=== PATIENT | female | born 1990 | race Caucasian/White ===

== ENCOUNTER 2017-03-11 19:45 | Emergency (ER) | payer OTHER ==
[2017-03-11] MEDS ORDERED: ONDANSETRON 4 MG TAB.RAPDIS SL ONE (20:41)
[2017-03-11] MEDS ORDERED: OXYCODONE-ACETAMINOPHEN 5-325 MG TABLET PO ONE (20:41)
--- NOTE | 2017-03-11 20:42 | ER Document Report ---
ED Medical Screen (RME) - General Chief Complaint: Abdominal Pain Stated Complaint: ABDOMINAL PAIN Time Seen by Provider: 03/11/17 20:38 Mode of Arrival: Ambulatory Information source: Patient TRAVEL OUTSIDE OF THE [place] IN LAST 30 DAYS: No - HPI Patient complains to provider of: Pelvic pain Notes: 03/11/17 20:41 Patient is a 27-year-old female with a history of previous ovarian cyst, presenting to the emergency room today complaining of stabbing left pelvic pain that has been worsening over the past 2-3 days - Related Data Allergies/Adverse Reactions: lactose [Lactose] Allergy (Verified 03/11/17 20:31) Past Medical History - Social History Chew tobacco use (# tins/day): No Frequency of alcohol use: None Drug Abuse: None Pulmonary Medical History: Reports: Hx Pneumonia Renal/ Medical History: Denies: Hx Peritoneal Dialysis Malignancy Medical History: Reports: Hx Cervical Cancer - First and only dose of radiation was given 2 months ago Past Surgical History: Reports: Hx Orthopedic Surgery - shoulder - Immunizations Immunizations up to date: Yes Hx Diphtheria, Pertussis, Tetanus Vaccination: Yes Physical Exam - Vital signs Vitals: Temp Pulse Resp BP Pulse Ox 97.8 F 69 16 123/70 99 03/11/17 19:54 03/11/17 19:54 03/11/17 19:54 03/11/17 19:54 03/11/17 19:54 Course - Vital Signs Vital signs: Temp Pulse Resp BP Pulse Ox 97.8 F 69 16 123/70 99 03/11/17 19:54 03/11/17 19:54 03/11/17 19:54 03/11/17 19:54 03/11/17 19:54
[2017-03-11 21:10] LABS: ABSOLUTE EOSINOPHILS # (AUTO) 0.2 10^3/uL (0.0-0.6); ABSOLUTE LYMPHOCYTES (AUTO) 2.7 10^3/uL (0.5-4.7); ABSOLUTE MONOCYTES (AUTO) 0.8 10^3/uL (0.1-1.4); ABSOLUTE NEUT (AUTO) 3.6 10^3/uL (1.7-8.2); BASOPHILS % (AUTO) 0.7 % (0-2); EOSINOPHILS % (AUTO) 2.7 % (0-6); HEMATOCRIT 39.7 % (36.0-47.0); HEMOGLOBIN 13.8 g/dL (12.0-15.5); HGB HCT DIFFERENCE 1.7; LYMPHOCYTES % (AUTO) 37.2 % (13-45); MEAN CORPUSCULAR HEMOGLOBIN 30.6 pg (27.0-33.4); MEAN CORPUSCULAR HGB CONC 34.8 g/dL (32.0-36.0); MEAN CORPUSCULAR VOLUME 88 fl (80-97); MONOCYTES % (AUTO) 10.6 % (3-13); RED BLOOD COUNT 4.51 10^6/uL (3.72-5.28); RED CELL DISTRIBUTION WIDTH 12.5 % (11.5-14.0); SEGMENTED NEUTROPHILS % (AUTO) 48.8 % (42-78); WHITE BLOOD COUNT 7.4 10^3/uL (4.0-10.5)
[2017-03-11 21:20] LABS: ALANINE AMINOTRANSFERASE 18 U/L (9-52); ALBUMIN 4.3 g/dL (3.5-5.0); ALKALINE PHOSPHATASE 41 U/L (38-126); ANION GAP 7 (5-19); ASPARTATE AMINO TRANSFERASE 20 U/L (14-36); BILIRUBIN,DIRECT 0.3 mg/dL (0.0-0.4); BILIRUBIN,TOTAL 0.4 mg/dL (0.2-1.3); BLOOD UREA NITROGEN 15 mg/dL (7-20); CALCIUM 9.9 mg/dL (8.4-10.2); CARBON DIOXIDE 30 mmol/L (22-30); CHLORIDE 103 mmol/L (98-107); CREATININE RESULT 0.96 mg/dL (0.52-1.25); GLUCOSE 90 mg/dL (75-110); LIPASE 79.6 U/L (23-300); POTASSIUM 4.4 mmol/L (3.6-5.0); SODIUM 139.8 mmol/L (137-145)
--- NOTE | 2017-03-11 21:45 | ER Document Report ---
ED GI/ - General Chief Complaint: Abdominal Pain Stated Complaint: ABDOMINAL PAIN Time Seen by Provider: 03/11/17 20:38 Mode of Arrival: Ambulatory Notes: Patient is a 27-year-old female that comes emergency department for chief complaint of 2 days of worsening sharp intermittent left lower pelvic pain. Patient states it feels like it radiates around to her left lower back. She has had similar pain in the past, has been diagnosed with ovarian cysts in the past, these have resolved on her own and she has not needed surgical intervention. She takes oral contraceptive pills. She denies fever, trauma, vaginal discharge, dysuria, vaginal bleeding. LMP last month. She reports history of LEEP procedure for cervical dysplasia. TRAVEL OUTSIDE OF THE [place] IN LAST 30 DAYS: No - Related Data Allergies/Adverse Reactions: lactose [Lactose] Allergy (Verified 03/11/17 20:31) Past Medical History - General Information source: Patient - Social History Smoking Status: Never Smoker Chew tobacco use (# tins/day): No Frequency of alcohol use: None Drug Abuse: None Family History: Reviewed & Not Pertinent Patient has suicidal ideation: No Patient has homicidal ideation: No Pulmonary Medical History: Reports: Hx Pneumonia Renal/ Medical History: Denies: Hx Peritoneal Dialysis Malignancy Medical History: Reports: Hx Cervical Cancer - First and only dose of radiation was given 2 months ago Past Surgical History: Reports: Hx Orthopedic Surgery - shoulder - Immunizations Immunizations up to date: Yes Hx Diphtheria, Pertussis, Tetanus Vaccination: Yes Hx Pneumococcal Vaccination: 03/08/13 Review of Systems - Review of Systems Constitutional: No symptoms reported EENT: No symptoms reported Cardiovascular: No symptoms reported Respiratory: No symptoms reported Gastrointestinal: See HPI Genitourinary: See HPI Female Genitourinary: See HPI Musculoskeletal: No symptoms reported Skin: No symptoms reported Hematologic/Lymphatic: No symptoms reported Neurological/Psychological: No symptoms reported Physical Exam - Vital signs Vitals: Temp Pulse Resp BP Pulse Ox 97.8 F 69 16 123/70 99 03/11/17 19:54 03/11/17 19:54 03/11/17 19:54 03/11/17 19:54 03/11/17 19:54 Interpretation: Normal - General General appearance: Appears well, Alert In distress: None - HEENT Head: Normocephalic, Atraumatic Eyes: Normal Pupils: PERRL - Respiratory Respiratory status: No respiratory distress Chest status: Nontender Breath sounds: Normal Chest palpation: Normal - Cardiovascular Rhythm: Regular Heart sounds: Normal auscultation Murmur: No - Abdominal Inspection: Normal Distension: No distension Bowel sounds: Normal Tenderness: Tender - There is some tenderness in the left lower quadrant in the left pelvic area, otherwise abdomen is soft, benign, and has no guarding or rigidity Organomegaly: No organomegaly - Back Back: Normal, Nontender - Extremities General upper extremity: Normal inspection, Nontender, Normal color, Normal ROM , Normal temperature General lower extremity: Normal inspection, Nontender, Normal color, Normal ROM , Normal temperature, Normal weight bearing. No: Smith's sign - Neurological Neuro grossly intact: Yes Cognition: Normal Orientation: AAOx4 Luke Coma Scale Eye Opening: Spontaneous Luke Coma Scale Verbal: Oriented [place] Coma Scale Motor: Obeys Commands [place] Coma Scale Total: 15 Speech: Normal Motor strength normal: LUE, RUE, LLE, RLE Sensory: Normal - Psychological Associated symptoms: Normal affect, Normal mood - Skin Skin Temperature: Warm Skin Moisture: Dry Skin Color: Normal Course - Re-evaluation Re-evalutation: After medications from triage patient's symptoms resolved. She does have some left lower abdominal/pelvic tenderness but there is no severe tenderness, there is no guarding, there is no rigidity. Vital signs unremarkable. CBC, chemistry , urinalysis unremarkable. Ultrasound showing 2.5 cm left ovarian cyst with no evidence of torsion, also so some calcification in the endometrium, discussed these with patient. Patient states she is ready to leave. Provided with medication, discussed return precautions including symptoms of torsion in detail. Patient states understanding and agreement. - Vital Signs Vital signs: Temp Pulse Resp BP Pulse Ox 98.8 F 64 16 118/60 100 03/11/17 23:35 03/11/17 23:35 03/11/17 23:35 03/11/17 23:35 03/11/17 23:35 - Laboratory Result Diagrams: 03/11/17 20:47 03/11/17 20:47 Laboratory results interpreted by me: 03/11/17 20:06 Urine Ascorbic Acid 20 H Discharge - Discharge Clinical Impression: Pelvic pain Condition: Stable Disposition: HOME, SELF-CARE Additional Instructions: Your symptoms and examination do suggest that the ovarian cyst on the left side as the cause of your pain. You also incidentally have some calcification on your uterus. Recommendation is to take the pain medication given tonight along with about 600 mg of ibuprofen if needed for pain, this should resolve with time. Follow-up with [facility]. Return to the emergency department for any concerning or worsening symptoms including severe return pain, vomiting, fever, etc. Ovarian Cyst Your examination shows the presence of an ovarian cyst. This is a ball of fluid attached to the ovary. Ovarian cysts in women of child-bearing age are usually innocent. However, the cyst may cause pain when it grows or bursts. An innocent ovarian cyst will usually go away by itself. When the cyst becomes painful, you should rest. Pain medication may be required. Some women find a hot water bottle soothing. The pain usually resolves within one or two days. After menopause, an ovarian cyst may mean a tumor, and requires more aggressive evaluation -- usually surgery is recommended to remove or biopsy the cyst. A very large cyst requires evaluation at any age. Most cysts (even the innocent ones) require follow-up examination. Call the doctor or return at any time if the pain increases significantly, if you become faint, or if you experience vaginal bleeding. Referrals: DOLORES NUNES NP-C [Primary Care Provider] - Follow up as needed
[2017-03-11 22:39] LABS: APPEARANCE,URINE SLIGHTLY-CLOUDY; BILIRUBIN,URINE NEGATIVE (NEGATIVE); CALCIUM OXALATE CRYSTALS,URINE FEW /HPF; GLUCOSE, URINE NEGATIVE (NEGATIVE); KETONES,URINE NEGATIVE (NEGATIVE); LEUKOCYTE ESTERASE,URINE NEGATIVE (NEGATIVE); NITRITE,URINE NEGATIVE (NEGATIVE); PROTEIN,URINE NEGATIVE (NEGATIVE); URINE SPECIFIC GRAVITY 1.028; UROBILINOGEN,URINE NEGATIVE mg/dL (<2.0)
--- NOTE | 2017-03-11 22:51 | RADIOLOGY REPORT (SQ) ---
EXAM DESCRIPTION: U/S NON OB PEL TV W/DOPPLER COMPLETED DATE/TIME: 03/11/2017 10:18 pm REASON FOR STUDY: sharp left pelvic pain, hx ovarian cysts COMPARISON: None. TECHNIQUE: Dynamic and static grayscale images acquired of the pelvis via transvaginal approach and recorded on PACS. Additional selected color Doppler and spectral images recorded. LIMITATIONS: None. FINDINGS: UTERUS: Contour normal. No mass. ENDOMETRIAL STRIPE: 2 mm fundal calcification. CERVIX: No nabothian cysts. RIGHT OVARY: Ovary not visualized. RIGHT OVARY DOPPLER: Ovary not visualized. LEFT OVARY: 2.6 cm cyst. LEFT OVARY DOPPLER: Normal arterial vascular flow without evidence for torsion. FREE FLUID: Mild cul-de-sac free fluid. OTHER: No other significant finding. MEASUREMENTS: UTERUS: 9.0 x 5.4 x 3.8 cm ENDOMETRIAL STRIPE: 5 mm RIGHT OVARY: Not visualized LEFT OVARY: 3.4 x 2.8 x 3.2 cm IMPRESSION: Nonvisualized right ovary. 2 mm fundal endometrial calcification.Mild cul-de-sac free fl uid. TECHNICAL DOCUMENTATION: JOB ID: [id number] [employer]- All Rights Reserved
[2017-03-11] MEDS ORDERED: HYDROCODONE/ACETAMINOPHEN 5-325 MG 6 TAB/DSPK PO PRN (23:16)
[2017-03-11 23:36] VITALS: BP 118/60
== END 2017-03-11 23:36 | disposition home or self-care (01) ==
LOC: ER 19:45
DX: N83.202 Unspecified ovarian cyst, left side (principal); N85.8 Other specified noninflammatory disorders of uterus; R10.2 Pelvic and perineal pain; Z85.41 Personal history of malignant neoplasm of cervix uteri; Z87.42 Personal history of other diseases of the female genital tract; Z79.3 Long term (current) use of hormonal contraceptives; Z92.3 Personal history of irradiation; Z98.890 Other specified postprocedural states
CPT/HCPCS: 99284; 36415; 87086; 83690; 84703; 85025; 80053; 81001; 76830; 93976; S0119

== ENCOUNTER 2018-03-18 16:21 | Outpatient (CLI) | payer OTHER ==
[2018-03-18 16:57] LABS: APPEARANCE,URINE CLEAR; BILIRUBIN,URINE NEGATIVE (NEGATIVE); COLOR,URINE STRAW; GLUCOSE, URINE NEGATIVE (NEGATIVE); KETONES,URINE NEGATIVE (NEGATIVE); LEUKOCYTE ESTERASE,URINE NEGATIVE (NEGATIVE); NITRITE,URINE NEGATIVE (NEGATIVE); PROTEIN,URINE NEGATIVE (NEGATIVE); URINE SPECIFIC GRAVITY 1.005; UROBILINOGEN,URINE NEGATIVE mg/dL (<2.0)
[2018-03-18 17:13] LABS: URINE AMPHETAMINES SCREEN NEGATIVE; URINE BARBITURATES SCREEN NEGATIVE; URINE BENZODIAZEPINES SCREEN NEGATIVE; URINE COCAINE SCREEN NEGATIVE; URINE MARIJUANA (THC) SCREEN NEGATIVE; URINE METHADONE SCREEN NEGATIVE; URINE PHENCYCLIDINE SCREEN NEGATIVE
[2018-03-18 17:57] LABS: BACTERIA (WET MOUNT) 3+ BACTERIA SEEN; EPITHELIALS (WET MOUNT) 3+ EPITHELIALS SEEN; RBCS (WET MOUNT) NO RBCS SEEN; T.VAGINALIS (WET MOUNT) NO TRICHOMONAS SEEN; WBCS (WET MOUNT) 1+ WBCS SEEN; YEAST (WET MOUNT) NO YEAST SEEN
--- NOTE | 2018-03-18 18:51 | Non Stress Test Report ---
Non Stress Test Datetime Report Generated by CPN: 03/18/2018 18:51 DEMOGRAPHIC EGA NST: 34.0 INDICATION Indication for Study: Ordered by Provider MONITORING Monitor Explained: Monitor Explained; Test Explained; Patient Verbalized Understanding Time on Monitor: 03/18/2018 16:34 Time off Monitor: 03/18/2018 18:02 NST Duration: 88 NST INTERVENTIONS NST Interventions: PO Hydration; Reposition Patient Physician Notified NST: Dr. Mcdonald BABY A: [id number] BABY A Movement : Present Contraction Frequency : none FHR Baseline : 120 Accelerations : 15X15 Decelerations : None Variability : Moderate 6-25bpm NST Review: Meets Criteria for Reactive NST NST Review and Verified By : WILLIAM Thayer Results: Reactive NST REPORT Report Trigger: Send Report
[2018-03-18 19:22] LABS: CHLAM PCR NOT DETECTED (NOT DETECT); GON PCR NOT DETECTED (NOT DETECT)
== END 2018-03-18 18:15 | disposition home or self-care (01) ==
LOC: LC 16:21
PROVIDERS: ATTEND Obstetrics & Gynecology Gynecology
PROC: 4A1HXCZ Monitoring of Products of Conception, Cardiac Rate, External Approach (ICD-10-PCS; principal; 2018-03-18)
DX: O47.03 False labor before 37 completed weeks of gestation, third trimester (principal); Z3A.34 34 weeks gestation of pregnancy
CPT/HCPCS: 59025; 80307; 81001; 84112; 87081; 87210; 87491; 87591

== ENCOUNTER 2018-12-03 17:52 | Emergency (ER) | payer OTHER ==
--- NOTE | 2018-12-03 19:34 | RADIOLOGY REPORT (SQ) ---
EXAM DESCRIPTION: HAND RIGHT 3 VIEWS COMPLETED DATE/TIME: 12/03/2018 7:03 pm REASON FOR STUDY: punched a wall COMPARISON: None. EXAM PARAMETERS: NUMBER OF VIEWS: Three views. TECHNIQUE: AP, lateral and oblique radiographic images acquired of the right hand. LIMITATIONS: None. FINDINGS: MINERALIZATION: Normal. BONES: Mildly comminuted nondisplaced 5th metacarpal distal metaphyseal fracture with minimal angulat ion. No other fracture or dislocation. JOINTS: No effusion. SOFT TISSUES: Mild soft tissue swelling. No radiopaque foreign body. OTHER: No other significant finding. IMPRESSION: Mildly comminuted nondisplaced 5th metacarpal distal metaphyseal fracture with minimal a ngulation. TECHNICAL DOCUMENTATION: JOB ID: [id number] [place]-72 2010 [employer]- All Rights Reserved Reading location - IP/workstation name: [email or web address]
--- NOTE | 2018-12-03 20:54 | ER Document Report ---
HPI - HPI Time Seen by Provider: 12/03/18 20:39 Pain Level: 3 Notes: Patient is a 28-year-old female presenting to the emergency department with complaints of right hand pain. Patient reports she punched a wall last night and hit a stud. Patient last took ibuprofen this morning. She reports pain over the fifth metacarpal area and swelling. - REPRODUCTIVE Reproductive: DENIES: : Past Medical History - General Information source: Patient - Social History Smoking Status: Never Smoker Chew tobacco use (# tins/day): No Frequency of alcohol use: Occasional Drug Abuse: None Family History: Reviewed & Not Pertinent Patient has suicidal ideation: No Patient has homicidal ideation: No Pulmonary Medical History: Reports: Hx Pneumonia Renal/ Medical History: Denies: Hx Peritoneal Dialysis Malignancy Medical History: Reports: Hx Cervical Cancer - First and only dose of radiation was given 2 months ago Past Surgical History: Reports: Hx Orthopedic Surgery - shoulder - Immunizations Immunizations up to date: Yes Hx Diphtheria, Pertussis, Tetanus Vaccination: Yes Hx Pneumococcal Vaccination: 03/08/13 Vertical Provider Document - CONSTITUTIONAL Notes: PHYSICAL EXAMINATION: GENERAL: Well-appearing, well-nourished and in no acute distress. HEAD: Atraumatic, normocephalic. EYES: Pupils equal round extraocular movements intact, conjunctiva are normal. ENT: Nares patent NECK: Normal range of motion LUNGS: No respiratory distress Musculoskeletal: Limited range of motion to right hand, cap refill less than 3 seconds, strong radial pulse, mild ecchymosis with diffuse swelling noted near the dorsal surface of the fifth metacarpal. NEUROLOGICAL: Normal speech, normal gait. PSYCH: Normal mood, normal affect. SKIN: Warm, Dry, normal turgor, no rashes or lesions noted. - INFECTION CONTROL TRAVEL OUTSIDE OF THE [place] IN LAST 30 DAYS: No Course - Re-evaluation Re-evalutation: 12/03/18 20:54 X-ray shows nondisplaced fifth meta carpal metacarpal fracture was mildly angulated. Patient will be placed in an ulnar gutter splint and referred to orthopedics. Patient understands to take ibuprofen, ice and keep splint in place. - Vital Signs Vital signs: Temp Pulse Resp BP Pulse Ox 97.6 F 100 16 133/72 H 100 12/03/18 17:58 12/03/18 17:58 12/03/18 17:58 12/03/18 17:58 12/03/18 17:58 Procedures - Immobilization Right hand Pre-Proc Neuro Vasc Exam: Normal Immobilizer type: Ulnar Performed by: PCT Post-Proc Neuro Vasc Exam: Normal Alignment checked and good: Yes Discharge - Discharge Clinical Impression: Closed fracture of 5th metacarpal Qualifiers: Encounter type: initial encounter Metacarpal location: unspecified portion of metacarpal Fracture alignment: nondisplaced Laterality: right Qualified Code(s): S62.306A - Unspecified fracture of fifth metacarpal bone, right hand, initial encounter for closed fracture Condition: Stable Disposition: HOME, SELF-CARE Additional Instructions: Fractured Fifth Metacarpal (Boxer's) You have a fracture of the fifth metacarpal bone in the hand, often called a Boxer's Fracture. The fracture is usually caused by striking the knuckle against a hard surface -- such as hitting a wall with the fist. This fracture heals well. Some degree of angle in the fracture is perfectly acceptable, resulting in only a slightly rounder knuckle. Your physician has determined whether your fracture could benefit from "setting", and has outlined a treatment plan for you. The usual treatment is splinting for four to six weeks -- a cast is not usually necessary. At first, the injury should be elevated and ice packed. Contact the doctor at once if swelling or pain becomes severe, or if numbness develops. Take ibuprofen 600 mg every 6 hours. Ice and elevate as discussed. Keep the temporary splint in place until you are seen by orthopedics, call them Thursday to schedule appointment. Referrals: HARIS IBRAHIM, [ACTIVE STAFF] - Follow up as needed
[2018-12-03 21:14] VITALS: BP 127/70
== END 2018-12-03 21:15 | disposition home or self-care (01) ==
LOC: ER 17:52
DX: S62.306A Unspecified fracture of fifth metacarpal bone, right hand, initial encounter for closed fracture (principal); M79.641 Pain in right hand; W22.09XA Striking against other stationary object, initial encounter
CPT/HCPCS: 99283

== ENCOUNTER 2020-02-26 02:05 | Emergency (ER) | payer OTHER ==
[2020-02-26 02:11] VITALS: BP 130/72
--- NOTE | 2020-02-26 04:15 | ER Document Report ---
ED Body Fluid Exposure - General Chief Complaint: Body Fluid Exposure Stated Complaint: MEDICAL CLEARANCE Time Seen by Provider: 02/26/20 03:54 Primary Care Provider: CLARISSA LOYA PA [Primary Care Provider] - Follow up as needed TRAVEL OUTSIDE OF THE [place] 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 Patient states that she was eating lunch when a code was called overhead which he responded to. Patient forgot her face mask when she responded to the code which involved a patient that was at the [employer] facility for alcohol withdrawal. Apparently the patient was having a seizure and bit his tongue and while trying to assist the seizing patient, the patient accidentally got some bloody sputum in her mouth that came from a cut in the seizing patient's mouth at the facility. Patient presents for rapid HIV and hepatitis panel testing. - Related Data Allergies/Adverse Reactions: No Known Allergies Allergy (Unverified 12/03/18 20:39) Past Medical History - General Information source: Patient - Social History Smoking Status: Never Smoker Chew tobacco use (# tins/day): No Frequency of alcohol use: Rare Drug Abuse: None Family History: Reviewed & Not Pertinent Pulmonary Medical History: Reports: Hx Pneumonia Renal/ Medical History: Denies: Hx Peritoneal Dialysis Malignancy Medical History: Reports: Hx Cervical Cancer - First and only dose of radiation was given 2 months ago Past Surgical History: Reports: Hx Orthopedic Surgery - shoulder - Immunizations Immunizations up to date: Yes Hx Diphtheria, Pertussis, Tetanus Vaccination: Yes Hx Pneumococcal Vaccination: 03/08/13 Review of Systems - Review of Systems Constitutional: See HPI EENT: No symptoms reported Cardiovascular: No symptoms reported Respiratory: No symptoms reported Gastrointestinal: No symptoms reported Genitourinary: No symptoms reported Female Genitourinary: No symptoms reported Musculoskeletal: No symptoms reported Skin: No symptoms reported Hematologic/Lymphatic: No symptoms reported Neurological/Psychological: No symptoms reported -: Yes All other systems reviewed and negative Physical Exam - Vital signs Vitals: Temp Pulse Resp BP Pulse Ox 98.0 F 77 20 130/72 H 98 02/26/20 02:09 02/26/20 02:09 02/26/20 02:02/26/20 02:02/26/20 02:09 - Notes Notes: CONSTITUTIONAL [Vital signs reviewed, Patient appears comfortable, Alert and oriented X 3, Normal stature.] HEAD [Atraumatic, Normocephalic.] EYES [Eyes are normal to inspection, No discharge from eyes, Extraocular muscles intact, Sclera are normal, Conjunctiva are normal.] NECK [Normal ROM, No jugular venous distention, No meningeal signs, no carotid bruit.] RESPIRATORY CHEST [Chest is nontender, Breath sounds normal, No respiratory distress.] CARDIOVASCULAR [RRR, No murmurs, Normal S1 S2, No rub, No gallop.] ABDOMEN [Abdomen is nontender, No pulsatile masses, No other masses, Bowel sounds normal, No distension, No peritoneal signs, No hernias.] BACK [There is no CVA Tenderness, There is no tenderness to palpation, Normal inspection.] UPPER EXTREMITY [Inspection normal, No cyanosis, No clubbing, No edema, 2+ radial pulses.] LOWER EXTREMITY [Inspection normal, No cyanosis, No clubbing, No edema, No calf tenderness, 2+ femoral pulses.] NEURO [No focal motor deficits, No focal sensory deficits, Speech normal.] SKIN [Skin is warm, Skin is dry, Skin is normal color.] LYMPHATIC [No adenopathy in neck.] PSYCHIATRIC [Normal affect. ] Course - Re-evaluation Re-evalutation: 02/26/20 05:23 This MD was informed by charge nurse that patient stated that she cannot wait any longer for the results of her rapid HIV test. Patient was informed of the risks of leaving AMA which are not limited to but include permanent disability and/or . Patient stated she understood risks as expressed her but has to get back to work. Patient encouraged to return to the emergency department anytime if she decides to seek further treatment. - Vital Signs Vital signs: Temp Pulse Resp BP Pulse Ox 98.0 F 77 20 130/72 H 98 02/26/20 02:09 02/26/20 02:09 02/26/20 02:02/26/20 02:09 02/26/20 02:09 Discharge - Discharge Clinical Impression: Employee exposure to body fluids Condition: Stable Disposition: AGAINST MEDICAL ADVICE Additional Instructions: Return to the Emergency Department without delay if any worse. Follow-up with employee health as directed. HOME CARE INSTRUCTIONS & INFORMATION: Thank you for choosing us for your medical needs. We hope you're satisfied with the care you received. After you leave, you must properly care for your problem and, at the same time, observe its progress. Any condition can change. Some illnesses can change rapidly over hours or days. If your condition worsens, return to the Emergency Department or see your physician promptly. ABOUT YOUR X-RAYS AND EKG'S: If you had an EKG or X-rays taken, they have been read by the Emergency Physician. The X-rays and EKG's will also be read by a Radiologist or Bufferer within 24 hours. If discrepancies are noted, you will be notified by telephone. Please be certain the ED has a correct telephone number & address where you can be reached. Also, realize that some fractures or abnormalities do not show up on initial X-rays. If your symptoms continue, see your physician. ABOUT YOUR LABORATORY TEST: If you had laboratory tests, the results have been reviewed by the Emergency Physician. Some test results (for example cultures) may not be available for several days. You will be contacted if any test result shows you need additional treatment. Please be certain the ED has a correct telephone number and address where you can be reached. ABOUT YOUR MEDICATIONS: You will receive instructions on how to take your medicine on the prescription label you receive. Additional information may be provided by the Pharmacy. If you have questions afterwards, call the ED for clarification or further instructions. Some prescribed medications may cause drowsiness. Do not perform tasks such as driving a car or operating machinery without consulting your Pharmacist. If you feel you need a refill of pain medication, your condition will need re-evaluation. Please do not call for a refill of any medication. ABOUT YOUR SIGNATURE: Signature of this document acknowledges to followin. Understanding that you received emergency treatment and that you may be released before al medical problems are known or treated. Please be certain the ED has a correct phone number & address where you can be reached. 2. Acknowledgement that you will arrange for follow-up care as recommended. 3. Authorization for the Emergency Physician to provide information to your follow-up Physician in order to maximize your care. AT ANY TIME, IF YOUR SYMPTOMS CHANGE SIGNIFICANTLY OR WORSEN OR YOU DEVELOP NEW SYMPTOMS, RETURN TO THE EMERGENCY DEPARTMENT IMMEDIATELY FOR RE-EVALUATION. OUR GOAL IS TO PROVIDE EXCELLENT MEDICAL CARE! WE HOPE THAT WE HAVE MET YOUR EXPECTATIONS DURING YOUR EMERGENCY DEPARTMENT VISIT AND THAT YOU FEEL YOU HAVE RECEIVED EXCELLENT CARE! Body Fluid Exposure You have had a potentially serious body fluid exposure from another person. Most of the time this type of exposure does not cause any problems. However, several infections can be transmitted this way. The most significant risk is hepatitis or HIV (the virus that causes AIDS). Being seen quickly for medical care is important. Hepatitis B and C viruses cause a serious liver infection. Immunization against Hepatitis B virus can prevent this infection. This requires an immediate dose, then booster doses at 1 and 6 months. The risk of transmitting HIV infection by a single body fluid exposure is very small. Even with high risk exposure (blood directly on mucous membranes from a person known to have HIV infection) the chance of getting infected is less than one in a thousand. Patients with high risk exposures should consider preventive treatment. Zidovudine (ZDV) treatment, or a combination of anti-HIV drugs can reduce the chance of HIV infection significantly. Treatment is usually continued for 4 weeks. Blood tests for HIV should be taken now and repeated at 6 weeks, and again at 3 and 6 months. Referrals: CLARISSA LOYA PA [Primary Care Provider] - Follow up as needed
[2020-02-27 13:37] LABS: HEPATITS B SURFACE ANTIGEN Negative (Negative)
[2020-02-28 07:00] LABS: HEPATITIS C VIRUS ANTIBODY <0.1 s/co ratio (0.0-0.9)
== END 2020-02-26 05:19 | disposition left against medical advice (07) ==
LOC: ER 02:05
DX: Z77.21 Contact with and (suspected) exposure to potentially hazardous body fluids (principal); Z85.41 Personal history of malignant neoplasm of cervix uteri; Z87.59 Personal history of other complications of pregnancy, childbirth and the puerperium; Z53.29 Procedure and treatment not carried out because of patient's decision for other reasons
CPT/HCPCS: 36415; 80074; 86701; 99283